=== PATIENT | female | born 1935 | race Caucasian/White ===

== ENCOUNTER 2020-04-19 13:34 | Emergency (ER) | payer MEDICARE, MEDICAID ==
[2020-04-19 13:46] VITALS: BP 126/62; PULSE 72
[2020-04-19] MEDS ORDERED: Sodium Chloride 0.9% 10 ML Syringe FLUSH PRN ×2 (13:53→14:52)
[2020-04-19] MEDS ORDERED: Sodium Chloride 0.9% 1,000 ML IV STA (14:46)
[2020-04-19] MEDS ORDERED: Iopamidol 755 Mg/ML 100 ML Bottle IVPUSH ONE (14:52)
[2020-04-19] MEDS ORDERED: Sodium Chloride 0.9% 100 ML IV SCH (15:00)
--- NOTE | 2020-04-19 15:32 | EDM.PDOC ---
ED HPI GENERAL MEDICAL PROBLEM - General Chief Complaint: Chest Pain Stated Complaint: CHEST PAIN L SIDE Time Seen by Provider: 04/19/20 13:51 Source of Information: Reports: Patient History Limitations: Reports: No Limitations - History of Present Illness INITIAL COMMENTS - FREE TEXT/NARRATIVE: Patient is an 84-year-old female presenting to the emergency department with complaints of left shoulder and chest pain started around 5 PM last evening. She states that the pain comes and goes. She denies any shortness of breath, fever, chills, diaphoresis, nausea, or vomiting. She states that she took some aspirin this morning and the pain has for the most part resolved. 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 Left Chest Pain Score (Numeric/FACES): 1 - Related Data Allergies Allergy/AdvReac Type Severity Reaction Status Date / Time Sulfa (Sulfonamide Allergy Rash Verified 04/19/20 13:46 Antibiotics) Home Meds: Home Meds Aspirin 500 mg PO Q4H PRN 04/19/20 [History] Bumetanide 2 mg PO DAILY 04/19/20 [History] Cholecalciferol (Vitamin D3) [Vitamin D3] 2,000 unit PO DAILY 04/19/20 [History] Cyanocobalamin (Vitamin B12) [Vitamin B12] 04/19/20 [History] Levothyroxine 112 mcg PO DAILY 04/19/20 [History] Metoprolol Succinate 50 mg PO DAILY 04/19/20 [History] Nitroglycerin [Nitrostat] 0.4 mg SL ASDIRECTED PRN 04/19/20 [History] Simvastatin 20 mg PO DAILY 04/19/20 [History] Vit C/E/Zn/Coppr/Lutein/Zeaxan [Preservision Areds 2 Softgel] 1 tab PO BID 04/19/20 [History] cefUROXime axetiL [Ceftin] 250 mg PO BID #14 tablet 04/19/20 [Rx] Past Medical History HEENT History: Reports: Impaired Vision Cardiovascular History: Reports: Heart Failure, High Cholesterol, Hypertension, Other (See Below) Other Cardiovascular History: DVT Respiratory History: Reports: PE, Other (See Below) Other Respiratory History: walking pneumonia Endocrine/Metabolic History: Reports: Hypothyroidism Hematologic History: Reports: Iron Deficiency - Infectious Disease History Infectious Disease History: Reports: Measles - Past Surgical History GI Surgical History: Reports: Cholecystectomy Social & Family History - Family History Family Medical History: Noncontributory - Tobacco Use Tobacco Use Status *Q: Never Tobacco User - Caffeine Use Caffeine Use: Reports: Coffee Other Caffeine Use: decaf - Recreational Drug Use Recreational Drug Use: No ED ROS GENERAL - Review of Systems Review Of Systems: See Below Constitutional: Reports: No Symptoms. Denies: Fever, Chills, Weakness HEENT: Reports: No Symptoms Respiratory: Reports: No Symptoms. Denies: Shortness of Breath, Cough Cardiovascular: Reports: Chest Pain. Denies: Dyspnea on Exertion, Lightheadedness, Syncope Endocrine: Reports: No Symptoms GI/Abdominal: Reports: No Symptoms. Denies: Abdominal Pain, Diarrhea, Nausea, Vomiting : Reports: No Symptoms Musculoskeletal: Reports: No Symptoms Skin: Reports: No Symptoms Neurological: Reports: No Symptoms Psychiatric: Reports: No Symptoms Hematologic/Lymphatic: Reports: No Symptoms Immunologic: Reports: No Symptoms ED EXAM, GENERAL - Physical Exam Exam: See Below General Appearance: Alert, WD/WN, No Apparent Distress Respiratory/Chest: No Respiratory Distress, Lungs Clear, Normal Breath Sounds, No Accessory Muscle Use, Other (Tenderness to palpation near the left fourth rib midclavicular line.) Cardiovascular: Normal Peripheral Pulses, Regular Rate, Rhythm, No Edema, No Gallop, No JVD, No Murmur, No Rub GI/Abdominal: Normal Bowel Sounds, Soft, Non-Tender, No Organomegaly, No Distention, No Abnormal Bruit, No Mass Neurological: Alert, Oriented, CN II-XII Intact, Normal Cognition, Normal Gait, Normal Reflexes, No Motor/Sensory Deficits Psychiatric: Normal Affect, Normal Mood Skin Exam: Warm, Dry, Intact, Normal Color, No Rash #1 Interpretation EKG Date: 04/19/20 Time: 13:38 Rhythm: NSR Rate (Beats/Min): 76 [place]: Normal P-Wave: Present QRS: Normal ST-T: Normal QT: Normal Course - Vital Signs Last Recorded V/S: Last Vital Signs Temp 96.8 F L 04/19/20 13:40 Pulse 72 04/19/20 13:40 Resp 20 04/19/20 13:40 BP 126/62 04/19/20 13:40 Pulse Ox 98 04/19/20 13:40 - Orders/Labs/Meds Orders: Active Orders 24 hr Category Date Time Status Chest 1V Frontal [CR] Stat Exams 04/19/20 14:00 Taken Chest PE [Ang Chest] [CT] Stat Exams 04/19/20 14:45 Taken CORONAVIRUS COVID-19 PCR PHL Routine Lab 04/19/20 16:23 Received CULTURE URINE [RM] Stat Lab 04/19/20 14:45 Received Peripheral IV Insertion Adult [OM.PC] Stat Oth 04/19/20 13:52 Ordered Labs: Laboratory Tests 04/19/20 04/19/20 04/19/20 Range/Units 13:42 13:42 13:42 WBC 11.72 H (3.98-10.04) K/mm3 RBC 4.12 (3.98-5.22) M/mm3 Hgb 13.1 (11.2-15.7) gm/dl Hct 41.3 (34.1-44.9) % MCV 100.2 H (79.4-94.8) fl MCH 31.8 (25.6-32.2) pg MCHC 31.7 L (32.2-35.5) g/dl RDW Std Deviation 51.3 H (36.4-46.3) fL Plt Count 285 (182-369) K/mm3 MPV 10.5 (9.4-12.3) fl Neut % (Auto) 91.0 H (34.0-71.1) % Lymph % (Auto) 6.1 L (19.3-51.7) % [place] % (Auto) 1.7 L (4.7-12.5) % Eos % (Auto) 0.4 L (0.7-5.8) Baso % (Auto) 0.6 (0.1-1.2) % Neut # (Auto) 10.66 H (1.56-6.13) K/mm3 Lymph # (Auto) 0.72 L (1.18-3.74) K/mm3 [place] # (Auto) 0.20 L (0.24-0.36) K/mm3 Eos # (Auto) 0.05 (0.04-0.36) K/mm3 Baso # (Auto) 0.07 (0.01-0.08) K/mm3 Manual Slide Review Abnormal smear D-Dimer, Quantitative 1.19 H (0.19-0.50) mg/L Sodium 141 (136-145) mEq/L Potassium 3.4 L (3.5-5.1) mEq/L Chloride 99 (98-107) mEq/L Carbon Dioxide 30 (21-32) mEq/L Anion Gap 15.4 H (5-15) BUN 18 (7-18) mg/dL Creatinine 1.6 H (0.55-1.02) mg/dL Est Cr Clr Drug Dosing 22.04 mL/min Estimated GFR (MDRD) 31 (>60) mL/min BUN/Creatinine Ratio 11.3 L (14-18) Glucose 174 H (83-115) mg/dL Calcium 9.1 (8.5-10.1) mg/dL Total Bilirubin 1.0 (0.2-1.0) mg/dL AST 14 L (15-37) U/L ALT 18 (14-59) U/L Alkaline Phosphatase 137 H (46-116) U/L Troponin I < 0.017 (0.00-0.056) ng/mL C-Reactive Protein 0.4 (<1.0) mg/dL NT-Pro-B Natriuret Pep (0-450) pg/mL Total Protein 7.4 (6.4-8.2) g/dl Albumin 3.8 (3.4-5.0) g/dl Globulin 3.6 gm/dL Albumin/Globulin Ratio 1.1 (1-2) Urine Color (Yellow) Urine Appearance (Clear) Urine pH (5.0-8.0) Ur Specific [place] (1.005-1.030) Urine Protein (Negative) Urine Glucose (UA) (Negative) Urine Ketones (Negative) Urine Occult Blood (Negative) Urine Nitrite (Negative) Urine Bilirubin (Negative) Urine Urobilinogen (0.2-1.0) Ur Leukocyte Esterase (Negative) U Hyaline Cast (Auto) (0-5) /lpf Urine RBC (0-5) /hpf Urine WBC (0-5) /hpf Ur Squamous Epith Cells (0-5) /hpf Urine Bacteria (FEW) /hpf Urine Mucus (FEW) /hpf 04/19/20 04/19/20 Range/Units 13:42 13:53 WBC (3.98-10.04) K/mm3 RBC (3.98-5.22) M/mm3 Hgb (11.2-15.7) gm/dl Hct (34.1-44.9) % MCV (79.4-94.8) fl MCH (25.6-32.2) pg MCHC (32.2-35.5) g/dl RDW Std Deviation (36.4-46.3) fL Plt Count (182-369) K/mm3 MPV (9.4-12.3) fl Neut % (Auto) (34.0-71.1) % Lymph % (Auto) (19.3-51.7) % [place] % (Auto) (4.7-12.5) % Eos % (Auto) (0.7-5.8) Baso % (Auto) (0.1-1.2) % Neut # (Auto) (1.56-6.13) K/mm3 Lymph # (Auto) (1.18-3.74) K/mm3 [place] # (Auto) (0.24-0.36) K/mm3 Eos # (Auto) (0.04-0.36) K/mm3 Baso # (Auto) (0.01-0.08) K/mm3 Manual Slide Review D-Dimer, Quantitative (0.19-0.50) mg/L Sodium (136-145) mEq/L Potassium (3.5-5.1) mEq/L Chloride (98-107) mEq/L Carbon Dioxide (21-32) mEq/L Anion Gap (5-15) BUN (7-18) mg/dL Creatinine (0.55-1.02) mg/dL Est Cr Clr Drug Dosing mL/min Estimated GFR (MDRD) (>60) mL/min BUN/Creatinine Ratio (14-18) Glucose (83-115) mg/dL Calcium (8.5-10.1) mg/dL Total Bilirubin (0.2-1.0) mg/dL AST (15-37) U/L ALT (14-59) U/L Alkaline Phosphatase (46-116) U/L Troponin I (0.00-0.056) ng/mL C-Reactive Protein (<1.0) mg/dL NT-Pro-B Natriuret Pep 242 (0-450) pg/mL Total Protein (6.4-8.2) g/dl Albumin (3.4-5.0) g/dl Globulin gm/dL Albumin/Globulin Ratio (1-2) Urine Color Light yellow (Yellow) Urine Appearance Slt cloudy H (Clear) Urine pH 7.0 (5.0-8.0) Ur Specific [place] 1.020 (1.005-1.030) Urine Protein Negative (Negative) Urine Glucose (UA) Negative (Negative) Urine Ketones Negative (Negative) Urine Occult Blood Negative (Negative) Urine Nitrite Negative (Negative) Urine Bilirubin Negative (Negative) Urine Urobilinogen 0.2 (0.2-1.0) Ur Leukocyte Esterase 2+ H (Negative) U Hyaline Cast (Auto) 0-5 (0-5) /lpf Urine RBC Not seen (0-5) /hpf Urine WBC 5-10 H (0-5) /hpf Ur Squamous Epith Cells 0-5 (0-5) /hpf Urine Bacteria Rare (FEW) /hpf Urine Mucus Rare (FEW) /hpf Meds: Medications Discontinued Medications Generic Name Dose Route Start Last Admin Trade Name Freq PRN Reason Stop Dose Admin Sodium Chloride 1,000 mls @ 150 mls/hr 04/19/20 14:46 04/19/20 14:51 Normal Saline IV 04/19/20 21:25 150 mls/hr NOW STA Administration Sodium Chloride 100 mls @ 75 mls/hr 04/19/20 15:00 04/19/20 15:08 Normal Saline IV 75 mls/hr ASDIRECTED WENDY Administration Iopamidol 100 ml 04/19/20 14:52 04/19/20 15:08 [id number] (76%) IVPUSH 04/19/20 14:53 100 ml ONETIME ONE Administration Sodium Chloride 10 ml 04/19/20 13:53 04/19/20 13:57 Saline Flush FLUSH 10 ml ASDIRECTED PRN Administration Keep Vein Open Sodium Chloride 10 ml 04/19/20 14:52 04/19/20 15:08 Saline Flush FLUSH 10 ml ONETIME PRN Administration IV FLUSH - Re-Assessments/Exams Free Text/Narrative Re-Assessment/Exam: Patient is an 84-year-old female presenting to the emergency department with complaints of left chest and shoulder pain that began around 5 PM last evening. Pain was only minimally present at the time of my exam. She denies any shortness of breath, diaphoresis, nausea, or vomiting. On exam, she does have an area of significant tenderness over the left fourth rib midclavicular line. She states that her chest wall is mildly tender with range of motion of her left shoulder. She denies any known injury to this area. I have ordered CBC, CRP, CMP, troponin, and D-dimer, chest x-ray, EKG. Patient is already taken aspirin today, therefore we will forego aspirin 324 mg. 04/19/20 14:45 Hematology was significant for WBC minimally elevated 11.72, D-dimer 1.19, potassium 3.4, anion gap 15.4, creatinine 1.6. Troponin was negative. CRP was normal, proBNP was normal. Analysis results are pending. I ordered a CT angiogram of the chest as well as IV fluids of normal saline at 150 mils per hour. 04/19/20 15:43 Urinalysis was significant for 2+ leukocyte esterase and 5-[address] angiogram of the chest showed: 1. Diffuse patchy airspace opacities noted throughout the bilateral lungs. Findings consistent with edema, viral, or atypical pneumonia. Other etiologies are not excluded. 2. Lungs are hyperinflated, consistent with underlying small airway disease. 3 no evidence of pulmonary embolism. 4. No evidence of aortic dissection. 5. 6 mm pleural-based nodule present within the right lower lobe. No routine follow-up is indicated. Patient has had no symptoms of cough or shortness of breath, however since she does have a urinary tract infection. I will treat with an antibiotic that will cover both urinary tract infection and atypical pneumonias. She will be started on Ceftin with a renal dose of 250 mg twice daily for 7 days. Given her distinct chest tenderness, I suspect her chest pain to be musculoskeletal in nature. We will complete a coronavirus test today before she leaves. Discharge instructions as documented. Departure - Departure Time of Disposition: 15:48 Disposition: Home, Self-Care 01 Condition: Good Clinical Impression: Atypical chest pain Urinary tract infection Qualifiers: Urinary tract infection type: site unspecified Hematuria presence: without hematuria Qualified Code(s): N39.0 - Urinary tract infection, site not specified Prescriptions: cefUROXime axetiL [Ceftin] 250 mg PO BID #14 tablet Instructions: Urinary Tract Infection, Adult, [id number], Nonspecific Chest Pain, Adult, [id number] Referrals: Dorcas Neri MD [Primary Care Provider] - Forms: ED Department Discharge Additional Instructions: You were seen in the emergency department today for left-sided chest pain that began last evening. Your work-up included blood work, urinalysis, chest x-ray, and EKG, and a CT angiogram of your chest. Results of your work-up show that you have a urinary tract infection as well as some patchy areas within your lungs, however there were no blood clots within your lungs and you are not having a heart attack. As we discussed, the likely cause of your chest wall pain is musculoskeletal in nature. Recommend ibuprofen and Tylenol as well as heat to the area as needed. A prescription for Ceftin which is an antibiotic, has been sent to [facility] in [place] [facility]. Take this medication as prescribed for treatment of your urinary tract infection. This would also cover if there was an underlying bacterial pneumonia forming. A coronavirus test has been completed today as well. You should receive results of this within 24 to 72 hours. If you experience any new or worsening symptoms of concern, please do not hesitate to return to the emergency department for reevaluation. Sepsis Event Note (ED) - Evaluation Sepsis Screening Result: No Definite Risk - Focused Exam Vital Signs: Vital Signs Temp Pulse Resp BP Pulse Ox 04/19/20 13:40 96.8 F L 72 20 126/62 98 - My Orders Last 24 Hours: My Active Orders 04/19/20 13:52 Peripheral IV Insertion Adult [OM.PC] Stat 04/19/20 14:00 Chest 1V Frontal [CR] Stat 04/19/20 14:45 Chest PE [Ang Chest] [CT] Stat CULTURE URINE [RM] Stat 04/19/20 16:23 CORONAVIRUS COVID-19 PCR PHL Routine - Assessment/Plan Last 24 Hours: My Active Orders 04/19/20 13:52 Peripheral IV Insertion Adult [OM.PC] Stat 04/19/20 14:00 Chest 1V Frontal [CR] Stat 04/19/20 14:45 Chest PE [Ang Chest] [CT] Stat CULTURE URINE [RM] Stat 04/19/20 16:23 CORONAVIRUS COVID-19 PCR PHL Routine
== END 2020-04-19 16:27 | disposition home or self-care (01) ==
LOC: JD.ED 13:34
DX: R07.89 Other chest pain (principal); N39.0 Urinary tract infection, site not specified; E78.00 Pure hypercholesterolemia, unspecified; I11.0 Hypertensive heart disease with heart failure; I50.9 Heart failure, unspecified; E03.9 Hypothyroidism, unspecified; Z79.82 Long term (current) use of aspirin; Z79.899 Other long term (current) drug therapy; Z86.73 Personal history of transient ischemic attack (TIA), and cerebral infarction without residual deficits; Z88.2 Allergy status to sulfonamides; Z20.828 Contact with and (suspected) exposure to other viral communicable diseases
CPT/HCPCS: 36415; 71045; 71275; 80053; 81001; 83880; 84484; 85025; 85379; 86140; 87086; 87088; 93005; 99285; J7030; Q9967; U0002; 93010; 99284

== ENCOUNTER 2022-05-02 21:31 | Emergency (ER) | payer MEDICARE, MEDICAID ==
[2022-05-02 21:54] VITALS: BP 154/65; PULSE 75
[2022-05-02] MEDS ORDERED: Sodium Chloride 0.9% 10 ML Syringe FLUSH PRN (22:04)
[2022-05-02] MEDS ORDERED: Sodium Chloride 0.9% 1,000 ML IV SCH (22:15)
== END 2022-05-03 | disposition home or self-care (01) ==
LOC: JD.ED 21:31
DX: E83.52 Hypercalcemia (principal); I13.0 Hypertensive heart and chronic kidney disease with heart failure and stage 1 through stage 4 chronic kidney disease, or unspecified chronic kidney disease; I50.9 Heart failure, unspecified; N18.4 Chronic kidney disease, stage 4 (severe); E78.00 Pure hypercholesterolemia, unspecified; Z88.2 Allergy status to sulfonamides; Z79.82 Long term (current) use of aspirin; Z79.899 Other long term (current) drug therapy; Z90.49 Acquired absence of other specified parts of digestive tract
CPT/HCPCS: 36415; 80053; 82330; 83735; 83880; 85025; 85652; 86140; 93005; 96360; 96361; 99283; J3490; J7030; 93010; 99284

== ENCOUNTER 2022-05-28 08:15 | Inpatient (IN) | payer MEDICAID, MEDICARE, OTHER ==
[2022-05-28] MEDS ORDERED: Sodium Chloride 0.9% 10 ML Syringe FLUSH PRN (08:36)
[2022-05-28] MEDS ORDERED: Sodium Chloride 0.9% 1,000 ML IV SCH ×2 (08:45→14:30)
[2022-05-28] MEDS ORDERED: Sodium Chloride 0.9% 100 ML ONE (12:18)
[2022-05-28] MEDS ORDERED: cefTRIAXone 1 GM Vial ONE (12:18)
[2022-05-28] MEDS ORDERED: cefTRIAXone 1 GM in Sodium Chloride 0.9% 100 ML IV ONE (12:33)
[2022-05-28] MEDS ORDERED: Docusate Sodium 100 MG Cap PO PRN (14:13)
[2022-05-28] MEDS: Potassium Chloride 10 MEQ in Premix Bag 1 BAG IV SCH ×6 (17:03→23:20)
[2022-05-28] MEDS: Lidocaine 4% 1 each Patch TOP SCH (17:24)
[2022-05-28] MEDS: Insulin Lispro 100 Unit/ML 3 ML KwikPen SUBCUT SCH ×2 (18:03→21:51)
[2022-05-28] MEDS ORDERED: Heparin Sodium 5,000 Units/ML Vial SUBCUT SCH (18:30)
[2022-05-28] MEDS: traMADol 50 MG Tab PO PRN (21:41)
[2022-05-28] MEDS: Carboxymethylcellulose Sodium 1% Ophth Gel 15 ML Bottle EYEBOTH SCH (21:42)
[2022-05-28] MEDS: Heparin Sodium 5,000 Units/ML Vial SUBCUT SCH (21:43)
[2022-05-29] MEDS: Bumetanide 1 MG Tab PO SCH ×2 (05:58→13:41)
[2022-05-29] MEDS: Levothyroxine 112 MCG Tab PO SCH (05:59)
[2022-05-29] MEDS: Heparin Sodium 5,000 Units/ML Vial SUBCUT SCH ×3 (05:59→21:41)
[2022-05-29] MEDS: Insulin Lispro 100 Unit/ML 3 ML KwikPen SUBCUT SCH ×4 (08:07→21:42)
[2022-05-29] MEDS: Lidocaine 4% 1 each Patch TOP SCH (08:12)
[2022-05-29] MEDS: Metoprolol Succinate 50 MG Tab.ER PO SCH (08:13)
[2022-05-29] MEDS: Tamsulosin 0.4 MG Cap.ER PO SCH (08:13)
[2022-05-29] MEDS: traMADol 50 MG Tab PO PRN (08:15)
[2022-05-29] MEDS ORDERED: Sodium Chloride 0.9% 1,000 ML IV SCH (08:15)
[2022-05-29] MEDS: Carboxymethylcellulose Sodium 1% Ophth Gel 15 ML Bottle EYEBOTH SCH ×3 (08:16→21:41)
[2022-05-29] MEDS ORDERED: Lidocaine 4% 1 each Patch TOP SCH (09:00)
[2022-05-29] MEDS ORDERED: HYDROmorphone 0.5 MG/0.5 ML Syringe IVPUSH PRN (11:08)
[2022-05-29] MEDS: cefTRIAXone 1 GM in Sodium Chloride 0.9% 100 ML IV SCH (11:54)
[2022-05-29] MEDS: fentaNYL 25 MCG/HR Transdermal Patch TRDERM SCH (11:54)
[2022-05-30] MEDS: Diclofenac Sodium 1% Gel 100 GM Tube TOP PRN ×3 (01:22→23:04)
[2022-05-30] MEDS: oxyCODONE 5 MG Tab PO PRN ×2 (01:23→23:03)
[2022-05-30] MEDS: Ondansetron 4 MG/2 ML SDV IV PRN (04:47)
[2022-05-30] MEDS: Levothyroxine 112 MCG Tab PO SCH (06:10)
[2022-05-30] MEDS: Bumetanide 1 MG Tab PO SCH ×2 (06:10→14:11)
[2022-05-30] MEDS: Heparin Sodium 5,000 Units/ML Vial SUBCUT SCH ×3 (06:10→22:09)
[2022-05-30] MEDS: Acetaminophen 325 MG Tab PO PRN (06:13)
[2022-05-30] MEDS ORDERED: Sodium Chloride 0.9% 500 ML IV ONE (07:55)
[2022-05-30] MEDS ORDERED: Sodium Chloride 0.9% 1,000 ML IV SCH (08:00)
[2022-05-30] MEDS: Insulin Lispro 100 Unit/ML 3 ML KwikPen SUBCUT SCH ×4 (08:36→22:09)
[2022-05-30] MEDS: Carboxymethylcellulose Sodium 1% Ophth Gel 15 ML Bottle EYEBOTH SCH ×3 (08:41→22:09)
[2022-05-30] MEDS: Lidocaine 4% 1 each Patch TOP SCH (08:48)
[2022-05-30] MEDS: Metoprolol Succinate 50 MG Tab.ER PO SCH (08:49)
[2022-05-30] MEDS: Tamsulosin 0.4 MG Cap.ER PO SCH (08:54)
[2022-05-30] MEDS: Potassium Chloride 20 MEQ Tab.ER PO SCH ×2 (08:54→22:09)
[2022-05-30] MEDS: Magnesium Oxide 400 MG Tab PO SCH (12:20)
[2022-05-30] MEDS: cefTRIAXone 1 GM in Sodium Chloride 0.9% 100 ML IV SCH (12:20)
[2022-05-30] MEDS: Ampicillin 2 GM in Sodium Chloride 0.9% 100 ML IV SCH (14:12)
[2022-05-30] MEDS ORDERED: HYDROmorphone 0.5 MG/0.5 ML Syringe IVPUSH PRN (14:38)
[2022-05-31] MEDS: Bumetanide 1 MG Tab PO SCH ×2 (06:39→14:57)
[2022-05-31] MEDS: Heparin Sodium 5,000 Units/ML Vial SUBCUT SCH ×4 (06:39→22:31)
[2022-05-31] MEDS: Levothyroxine 112 MCG Tab PO SCH (06:39)
[2022-05-31] MEDS: Insulin Lispro 100 Unit/ML 3 ML KwikPen SUBCUT SCH ×4 (06:39→20:52)
[2022-05-31] MEDS ORDERED: Magnesium Sulfate/Water 2 GM in Premix Bag 1 BAG IV ONE (08:15)
[2022-05-31] MEDS: Lidocaine 4% 1 each Patch TOP SCH (08:55)
[2022-05-31] MEDS: Acetaminophen 325 MG Tab PO PRN (08:56)
[2022-05-31] MEDS: Potassium Chloride 20 MEQ Tab.ER PO SCH (08:56)
[2022-05-31] MEDS: Tamsulosin 0.4 MG Cap.ER PO SCH (08:56)
[2022-05-31] MEDS: Metoprolol Succinate 50 MG Tab.ER PO SCH (08:57)
[2022-05-31] MEDS: Magnesium Oxide 400 MG Tab PO SCH (08:57)
[2022-05-31] MEDS: Carboxymethylcellulose Sodium 1% Ophth Gel 15 ML Bottle EYEBOTH SCH ×3 (09:02→20:52)
[2022-05-31] MEDS: Diclofenac Sodium 1% Gel 100 GM Tube TOP PRN (09:03)
[2022-05-31] MEDS: Ondansetron 4 MG/2 ML SDV IV PRN (10:39)
[2022-05-31] MEDS: Ampicillin 2 GM in Sodium Chloride 0.9% 100 ML IV SCH (14:55)
[2022-05-31] MEDS: oxyCODONE 5 MG Tab PO PRN (23:25)
[2022-06-01] MEDS: Levothyroxine 112 MCG Tab PO SCH (05:50)
[2022-06-01] MEDS: Bumetanide 1 MG Tab PO SCH ×2 (05:50→14:30)
[2022-06-01] MEDS: Heparin Sodium 5,000 Units/ML Vial SUBCUT SCH ×3 (05:51→22:42)
[2022-06-01] MEDS: Insulin Lispro 100 Unit/ML 3 ML KwikPen SUBCUT SCH ×4 (06:56→21:48)
[2022-06-01] MEDS: Lidocaine 4% 1 each Patch TOP SCH (09:22)
[2022-06-01] MEDS: Potassium Chloride 20 MEQ Tab.ER PO SCH (09:26)
[2022-06-01] MEDS: Metoprolol Succinate 50 MG Tab.ER PO SCH (09:27)
[2022-06-01] MEDS: Magnesium Oxide 400 MG Tab PO SCH (09:29)
[2022-06-01] MEDS: Tamsulosin 0.4 MG Cap.ER PO SCH (09:29)
[2022-06-01] MEDS: Carboxymethylcellulose Sodium 1% Ophth Gel 15 ML Bottle EYEBOTH SCH ×3 (09:34→21:30)
[2022-06-01] MEDS: fentaNYL 25 MCG/HR Transdermal Patch TRDERM SCH (10:27)
[2022-06-01] MEDS: Ampicillin 2 GM in Sodium Chloride 0.9% 100 ML IV SCH (14:30)
[2022-06-01] MEDS: oxyCODONE 5 MG Tab PO PRN ×2 (17:32→23:13)
[2022-06-02] MEDS: oxyCODONE 5 MG Tab PO PRN (04:23)
[2022-06-02] MEDS: Levothyroxine 112 MCG Tab PO SCH (06:14)
[2022-06-02] MEDS: Heparin Sodium 5,000 Units/ML Vial SUBCUT SCH ×3 (06:14→21:14)
[2022-06-02] MEDS: Bumetanide 1 MG Tab PO SCH ×2 (06:14→14:25)
[2022-06-02] MEDS: Lidocaine 4% 1 each Patch TOP SCH (08:45)
[2022-06-02] MEDS: Magnesium Oxide 400 MG Tab PO SCH (08:58)
[2022-06-02] MEDS: Metoprolol Succinate 50 MG Tab.ER PO SCH (08:58)
[2022-06-02] MEDS: Potassium Chloride 20 MEQ Tab.ER PO SCH (09:00)
[2022-06-02] MEDS: Tamsulosin 0.4 MG Cap.ER PO SCH (09:00)
[2022-06-02] MEDS: Carboxymethylcellulose Sodium 1% Ophth Gel 15 ML Bottle EYEBOTH SCH ×3 (09:00→21:13)
[2022-06-02] MEDS: Insulin Lispro 100 Unit/ML 3 ML KwikPen SUBCUT SCH ×4 (09:06→21:16)
[2022-06-02] MEDS: Polyethylene Glycol 3350 Powder 17 GM Packet PO SCH (12:11)
[2022-06-02] MEDS: Ampicillin 2 GM in Sodium Chloride 0.9% 100 ML IV SCH (14:25)
[2022-06-02] MEDS: Diclofenac Sodium 1% Gel 100 GM Tube TOP PRN (18:57)
[2022-06-02] MEDS ORDERED: Sodium Chloride 0.9% 250 ML IV ONE (19:09)
[2022-06-02] MEDS ORDERED: Magnesium Sulfate/Water 2 GM in Premix Bag 1 BAG IV ONE (19:21)
[2022-06-02] MEDS: Acetaminophen 325 MG Tab PO PRN (21:14)
[2022-06-03] MEDS: Levothyroxine 112 MCG Tab PO SCH (05:12)
[2022-06-03] MEDS: Acetaminophen 325 MG Tab PO PRN ×2 (05:13→09:11)
[2022-06-03] MEDS: Bumetanide 1 MG Tab PO SCH ×2 (05:13→13:37)
[2022-06-03] MEDS: oxyCODONE 5 MG Tab PO PRN ×3 (05:19→21:54)
[2022-06-03] MEDS: Diclofenac Sodium 1% Gel 100 GM Tube TOP PRN ×2 (05:20→21:55)
[2022-06-03] MEDS: Heparin Sodium 5,000 Units/ML Vial SUBCUT SCH ×3 (06:22→21:54)
[2022-06-03] MEDS: Insulin Lispro 100 Unit/ML 3 ML KwikPen SUBCUT SCH ×4 (06:38→22:55)
[2022-06-03] MEDS: Tamsulosin 0.4 MG Cap.ER PO SCH (09:12)
[2022-06-03] MEDS: Metoprolol Succinate 50 MG Tab.ER PO SCH (09:13)
[2022-06-03] MEDS: Magnesium Oxide 400 MG Tab PO SCH (09:13)
[2022-06-03] MEDS: Potassium Chloride 20 MEQ Tab.ER PO SCH (09:14)
[2022-06-03] MEDS: Polyethylene Glycol 3350 Powder 17 GM Packet PO SCH (09:15)
[2022-06-03] MEDS: Lidocaine 4% 1 each Patch TOP SCH (09:15)
[2022-06-03] MEDS: Carboxymethylcellulose Sodium 1% Ophth Gel 15 ML Bottle EYEBOTH SCH ×3 (09:21→21:54)
[2022-06-04 02:03] VITALS: BP 104/52; PULSE 80
[2022-06-04] MEDS: Levothyroxine 112 MCG Tab PO SCH (06:01)
[2022-06-04] MEDS: Heparin Sodium 5,000 Units/ML Vial SUBCUT SCH (06:01)
[2022-06-04] MEDS: Bumetanide 1 MG Tab PO SCH (06:01)
[2022-06-04] MEDS: oxyCODONE 5 MG Tab PO PRN (06:04)
== END 2022-06-04 09:17 | DRG 682 ==
LOC: JD.ED 08:15 → JD.MS 13:32 → MERGE 13:32 → JD.MS 15:25
PROVIDERS: ADMIT Internal Medicine; ATTEND Internal Medicine
DX: N17.9 Acute kidney failure, unspecified (principal); I21.A1 Myocardial infarction type 2; I13.0 Hypertensive heart and chronic kidney disease with heart failure and stage 1 through stage 4 chronic kidney disease, or unspecified chronic kidney disease; I50.32 Chronic diastolic (congestive) heart failure; N18.30 Chronic kidney disease, stage 3 unspecified; I50.9 Heart failure, unspecified; M19.90 Unspecified osteoarthritis, unspecified site; E78.00 Pure hypercholesterolemia, unspecified; N30.00 Acute cystitis without hematuria; Z66 Do not resuscitate; E83.42 Hypomagnesemia; Z79.890 Hormone replacement therapy; Z79.899 Other long term (current) drug therapy; Z20.822 Contact with and (suspected) exposure to COVID-19; W19.XXXA Unspecified fall, initial encounter; I25.10 Atherosclerotic heart disease of native coronary artery without angina pectoris; N18.4 Chronic kidney disease, stage 4 (severe); E78.5 Hyperlipidemia, unspecified; I27.20 Pulmonary hypertension, unspecified; K59.09 Other constipation; M15.9 Polyosteoarthritis, unspecified; M96.1 Postlaminectomy syndrome, not elsewhere classified; M79.2 Neuralgia and neuritis, unspecified; D63.1 Anemia in chronic kidney disease; E87.6 Hypokalemia; E86.0 Dehydration; R29.6 Repeated falls; E11.22 Type 2 diabetes mellitus with diabetic chronic kidney disease; Z79.4 Long term (current) use of insulin; Z86.711 Personal history of pulmonary embolism; Z88.2 Allergy status to sulfonamides; Z88.8 Allergy status to other drugs, medicaments and biological substances; Z86.010 Personal history of colon polyps
CPT/HCPCS: 36415; 71045; 80053; 81001; 83735; 83880; 84145; 84484 ×2; 85025; 86140; 87086; 87088; 87186; 93005; 96361; 96365; 99285; J0696; J3490; J7030; U0002; 70450; 70450-26; 70470; 80048; 82947; 85027; 93306; 94760; 94761; 97162-GP; 97166-GO; 97530-GO; 97530-GP; A9270-GY; J0290; J1170; J1644; J1815; J2405; J3475; J3480